=== PATIENT | male | born 1985 | race American Indian/Alaskan Native ===

== ENCOUNTER 2021-03-17 16:05 | Emergency (ER) | payer OTHER, MEDICAID ==
[2021-03-17] MEDS ORDERED: IBUPROFEN 800 MG TAB PO ONE (18:40)
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
[2021-03-17] MEDS ORDERED: ACETAMINOPHEN 500 MG TAB PO STA (18:52)
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
[2021-03-17 19:45] VITALS: BP 163/108
== END 2021-03-17 20:28 | disposition home or self-care (01) ==
LOC: ED 16:05
DX: S00.03XA Contusion of scalp, initial encounter (principal); R03.0 Elevated blood-pressure reading, without diagnosis of hypertension; Z79.899 Other long term (current) drug therapy; V49.49XA Driver injured in collision with other motor vehicles in traffic accident, initial encounter; Y93.89 Activity, other specified; Y92.488 Other paved roadways as the place of occurrence of the external cause; Y99.8 Other external cause status
CPT/HCPCS: 72072; 72100; 99283